=== PATIENT | male | born 1985 | race Caucasian/White ===

== ENCOUNTER 2022-12-29 21:09 | Emergency (ER) | payer BC, SELFPAY ==
[2022-12-29 21:18] VITALS: BP 174/91; PULSE 103; RESP 18; TEMP 36.8; O2SAT 99; BMI 35.6
--- NOTE | 2022-12-29 21:28 | ED.SKABFB1 ---
Documented by User: DANISHA Good 12/29/22 21:30 HPI - Skin/Abscess/Foreign Bdy General Chief complaint: Skin/Abscess/Foreign Body Stated complaint: RASH Time Seen by Provider: 12/29/22 21:24 History of Present Illness HPI narrative: patient is a 37-year-old male who presents to the emergency department for the evaluation of a rash to the trunk, hand and groin. Patient was mowing the lawn when he developed a rash. He states for the last two weeks he has had an itchy, red rash to these areas. He was seen at urgent care a week ago and received an intramuscular injection of steroids. He was not discharged home on any medications. He states he went back to urgent care today because the rash has not improved and seems to be worsening. They sent him to the emergency department because the urgent care provider was not sure what to do. He denies any drainage from the rash. He states it is itchy, no pain. Related Data Previous Rx's Medication Instructions Recorded hydroxyzine HCl 25 mg tablet 25 mg PO Q6H PRN itching #20 tabs 12/29/22 prednisone 20 mg tablet 60 mg PO DAILY #12 tabs 12/29/22 Allergies Allergy/AdvReac Type Severity Reaction Status Date / Time No Known Drug Allergies Allergy Verified 12/29/22 21:21 Review of Systems ROS Constitutional Denies: fever or chills Ears, nose, mouth, and throat Denies: throat pain Cardiovascular Denies: chest pain Respiratory Denies: shortness of breath or cough Gastrointestinal Denies: nausea or vomiting Musculoskeletal Denies: back pain Integumentary/Breast Reports: rash and itching Neurological Denies: headache Endocrine Denies: excessive urination PFSH PFSH Social History Smoking status: Never smoker Exam Narrative Exam Narrative: Gen.: Awake, alert, in no distress Head: Normocephalic, atraumatic ENT: Moist mucous membranes, no facial edema or swelling Respiratory: No respiratory distress Extremities: Moves extremities equally Psych: Normal mood and affect Neuro: No focal neuro deficit Skin: Warm, dry, erythematous linear vesicular rash over the right anterior abdomen into the groin. No pustules or fluid-filled areas. No evidence of secondary cellulitis. No petechiae or purpura. No extension to the mucous membranes. Constitutional Vital Signs, click to edit/add: Last Vital Signs Temp 98.3 F 12/29/22 21:18 Pulse 103 H 12/29/22 21:18 Resp 18 12/29/22 21:18 BP 174/91 H 12/29/22 21:18 Pulse Ox 99 12/29/22 21:18 O2 Del Method Room Air 12/29/22 21:18 Course Vital Signs Vital signs: Vital Signs Temperature 98.3 F 12/29/22 21:18 Pulse Rate 103 H 12/29/22 21:18 Respiratory Rate 18 12/29/22 21:18 Blood Pressure 174/91 H 12/29/22 21:18 Pulse Oximetry 99 12/29/22 21:18 Oxygen Delivery Method Room Air 12/29/22 21:18 Temperature 98.3 F 12/29/22 21:18 Pulse Rate 103 H 12/29/22 21:18 Respiratory Rate 18 12/29/22 21:18 Blood Pressure 174/91 H 12/29/22 21:18 Pulse Oximetry 99 12/29/22 21:18 Oxygen Delivery Method Room Air 12/29/22 21:18 MDM - Skin/Abscess/Foreign Bdy MDM Narrative Medical decision making narrative: exam is consistent with contact dermatitis by history and physical exam. Patient started on a longer taper of steroids with antihistamines for itching. Follow-up with PCP, prednisone and Atarax given for home. Return to the Emergency Room if symptoms change or worsen. Medical Records Attestation: I reviewed the patient's medical records. Discharge Plan Discharge Chief Complaint: Skin/Abscess/Foreign Body Clinical Impression: Contact dermatitis, Skin rash Patient Disposition: Home, Self-Care Time of Disposition Decision: 21:25 Condition: Good Prescriptions / Home Meds: New prednisone 20 mg tablet 60 mg PO DAILY Qty: 12 0RF Rx Instructions: 3 tabs daily for 2 days, then 2 tabs daily for 2 days, then 1 tab daily for 2 days hydroxyzine HCl 25 mg tablet 25 mg PO Q6H PRN (Reason: itching) Qty: 20 0RF Instructions: Contact Dermatitis (ED), Acute Rash (ED) Stand Alone Forms: Portal Instructions Referrals: MARILEE ESTEBAN [Primary Care Provider] - 1 week Discharge Date/Time: 12/29/22 21:38 Documented by User: Pati Quiñonez MD 12/30/22 01:21 HPI - Skin/Abscess/Foreign Bdy General Chief complaint: Skin/Abscess/Foreign Body Stated complaint: RASH Time Seen by Provider: 12/29/22 21:24 Related Data Previous Rx's Medication Instructions Recorded hydroxyzine HCl 25 mg tablet 25 mg PO Q6H PRN itching #20 tabs 12/29/22 prednisone 20 mg tablet 60 mg PO DAILY #12 tabs 12/29/22 Allergies Allergy/AdvReac Type Severity Reaction Status Date / Time No Known Drug Allergies Allergy Verified 12/29/22 21:21 PFSH PFSH Social History Smoking status: Never smoker Exam Constitutional Vital Signs, click to edit/add: Last Vital Signs Temp 98.3 F 12/29/22 21:18 Pulse 103 H 12/29/22 21:18 Resp 18 12/29/22 21:18 BP 174/91 H 12/29/22 21:18 Pulse Ox 99 12/29/22 21:18 O2 Del Method Room Air 12/29/22 21:18 Course Vital Signs Vital signs: Vital Signs Temperature 98.3 F 12/29/22 21:18 Pulse Rate 103 H 12/29/22 21:18 Respiratory Rate 18 12/29/22 21:18 Blood Pressure 174/91 H 12/29/22 21:18 Pulse Oximetry 99 12/29/22 21:18 Oxygen Delivery Method Room Air 12/29/22 21:18 Temperature 98.3 F 12/29/22 21:18 Pulse Rate 103 H 12/29/22 21:18 Respiratory Rate 18 12/29/22 21:18 Blood Pressure 174/91 H 12/29/22 21:18 Pulse Oximetry 99 12/29/22 21:18 Oxygen Delivery Method Room Air 12/29/22 21:18 MDM - Skin/Abscess/Foreign Bdy MDM Narrative Medical decision making narrative: exam is consistent with contact dermatitis by history and physical exam. Patient started on a longer taper of steroids with antihistamines for itching. Follow-up with PCP, prednisone and Atarax given for home. Return to the Emergency Room if symptoms change or worsen. Attending physician attestation I have reviewed the mid-level documentation, agree with the documentation, medical decision making and treatment plan as outlined by the mid-level provider. Discharge Plan Discharge Chief Complaint: Skin/Abscess/Foreign Body Clinical Impression: Contact dermatitis, Skin rash Patient Disposition: Home, Self-Care Time of Disposition Decision: 21:25 Condition: Good Prescriptions / Home Meds: New prednisone 20 mg tablet 60 mg PO DAILY Qty: 12 0RF Rx Instructions: 3 tabs daily for 2 days, then 2 tabs daily for 2 days, then 1 tab daily for 2 days hydroxyzine HCl 25 mg tablet 25 mg PO Q6H PRN (Reason: itching) Qty: 20 0RF Instructions: Contact Dermatitis (ED), Acute Rash (ED) Stand Alone Forms: Portal Instructions Referrals: MARILEE ESTEBAN [Primary Care Provider] - 1 week Discharge Date/Time: 12/29/22 21:38
[2022-12-29] MEDS: PREDNISONE 20 MG TABLET 60 MG PO (21:36)
== END 2022-12-29 21:38 | disposition home or self-care (01) ==
PROVIDERS: Emergency Provider Emergency Medicine; PCP Family Medicine
DX: L25.9 Unspecified contact dermatitis, unspecified cause (principal); R21 Rash and other nonspecific skin eruption
CPT/HCPCS: 99283